=== PATIENT | female | born 1990 | race Caucasian/White ===

== ENCOUNTER 2017-06-11 19:35 | Outpatient (CLI) | payer OTHER ==
[~2017-06-11] VITALS: Ht 175.3 cm; Wt 91.8 kg
[~2017-06-11 19:35] MED LIST: NORCO 325 MG-51 TAB PO; PRENATAL MVI; ZOFRAN ODT4 MG PO
[2017-06-11 20:27] VITALS: BP 119/76; PULSE 90; TEMP 97.7
[2017-06-11] MEDS ORDERED: PRILOSEC 20MG20 MG PO (20:33)
[2017-06-11] MEDS ORDERED: LEXAPRO20 MG PO (20:33)
[2017-06-11] MEDS ORDERED: CALCIUM CARBON650 M2 PO (20:34)
[2017-06-11] MEDS ORDERED: PRENATAL1 TA7 PO (20:34)
== END 2017-06-11 21:05 | disposition home or self-care (01) ==
LOC: LDRO 19:35
DX: O62.9 Abnormality of forces of labor, unspecified (principal); Z3A.40 40 weeks gestation of pregnancy

== ENCOUNTER 2017-06-11 23:43 | Inpatient (IN) | payer OTHER ==
[~2017-06-11] VITALS: Ht 175.3 cm; Wt 91.8 kg
[~2017-06-11 23:43] MED LIST changes: +CALCIUM CARBON650 M2 PO; +LEXAPRO20 MG PO; +PRENATAL1 TA7 PO; +PRILOSEC 20MG20 MG PO
[2017-06-12] VITALS (29 sets, daily range): BP systolic 94–140; BP diastolic 50–95; PULSE 62–99; TEMP 97.9–98.8
[2017-06-12 00:47] LABS: BASO # 0.1 (0.0-0.2); BASO % 0.3 % (0.0-2.0); EOS # 0.2 (0.0-0.7); EOS % 1.2 % (0-4.0); GRAN # 11.7 (1.4-6.5); GRAN % 75.3 % (42.2-75.2); LYMPH # 2.2 (1.2-3.4); LYMPH % 14.4 % (20.0-51.0); MEAN CELL VOLUME 80 fl (80.0-100.0); MEAN CORPUSCULAR HGB CONC 34 g/dl (33.0-37.0); MEAN PLATELET VOLUME 11.4 fl (7.4-10.4); MONO # 1.2 (0.1-0.6); PLATELET COUNT 144 K/mm3 (130-400); RED BLOOD COUNT 4.27 M/mm3 (4.10-5.30); REDCELL DISTRIBUTION WIDTH-CV 13.2 % (11.5-14.5); WHITE BLOOD COUNT 15.6 K/mm3 (4.8-10.8)
[2017-06-12 00:50] LABS: HEMOGLOBIN 11.5 g/dl (12.5-16.0); MEAN CORPUSCULAR HEMOGLOBIN 27 pg (27.0-31.0)
[2017-06-13] MEDS ORDERED: PERCOCET 325 MG1 TA2 PO (03:22)
[2017-06-13] MEDS ORDERED: MOTRIN 800800 MG/TAB PO (03:22)
[2017-06-13 08:00] VITALS: BP 111/62; PULSE 77; TEMP 97.8
== END 2017-06-13 15:30 | disposition home or self-care (01) | DRG 775 ==
LOC: LDRO 23:43 → LDR 06-12 → OB 06-12
PROVIDERS: Obstetrics & Gynecology
PROC: 10E0XZZ Delivery of Products of Conception, External Approach (ICD-10-PCS; principal; 2017-06-12)
PROC: 0KQM0ZZ Repair Perineum Muscle, Open Approach (ICD-10-PCS; 2017-06-12)
DX: O48.0 Post-term pregnancy (principal); O70.1 Second degree perineal laceration during delivery; O77.0 Labor and delivery complicated by meconium in amniotic fluid; Z3A.40 40 weeks gestation of pregnancy; Z37.0 Single live birth
CPT/HCPCS: J2405; J2590; J7120

== ENCOUNTER 2018-10-15 03:43 | Inpatient (IN) | payer OTHER ==
[~2018-10-15] VITALS: Ht 177.8 cm; Wt 87.3 kg
[2018-10-15] VITALS (16 sets, daily range): BP systolic 96–121; BP diastolic 51–82; PULSE 66–91; TEMP 97.9–98.8
[~2018-10-15 03:43] MED LIST changes: +MOTRIN 800800 MG/TAB PO; +PERCOCET 325 MG1 TA2 PO
[2018-10-15] MEDS ORDERED: UNISOM25 MG PO (04:08)
[2018-10-15] MEDS ORDERED: VITAMIN B-625 MG PO (04:09)
[2018-10-15 05:51] LABS: BASO # 0.1 (0.0-0.2); BASO % 0.4 % (0.0-2.0); EOS # 0.2 (0.0-0.7); EOS % 0.9 % (0-4.0); GRAN # 12.8 (1.4-6.5); GRAN % 77.1 % (42.2-75.2); HEMATOCRIT 35.4 % (37.0-47.0); LYMPH # 2.3 (1.2-3.4); LYMPH % 13.5 % (20.0-51.0); MEAN CELL VOLUME 83 fl (80.0-100.0); MEAN CORPUSCULAR HEMOGLOBIN 28 pg (27.0-31.0); MEAN CORPUSCULAR HGB CONC 34 g/dl (33.0-37.0); MEAN PLATELET VOLUME 11.2 fl (7.4-10.4); MONO # 1.2 (0.1-0.6); MONO % 7.3 % (1.7-9.3); PLATELET COUNT 155 K/mm3 (130-400); RED BLOOD COUNT 4.28 M/mm3 (4.10-5.30); REDCELL DISTRIBUTION WIDTH-CV 13.3 % (11.5-14.5)
[2018-10-16] VITALS: BP 117/52; PULSE 74; TEMP 98.5
[2018-10-16 07:11] VITALS: BP 119/64; PULSE 73; TEMP 98.4
[2018-10-16] MEDS ORDERED: PERCOCET 325 MG1 TA2 PO (10:13)
[2018-10-16] MEDS ORDERED: IBU800 M1 PO (10:13)
== END 2018-10-16 12:30 | disposition home or self-care (01) | DRG 807 ==
LOC: LDRO 03:43 → LDR 05:09 → OB 10:45
PROVIDERS: Student in an Organized Health Care Education/Training Program
PROC: 10E0XZZ Delivery of Products of Conception, External Approach (ICD-10-PCS; principal; 2018-10-15)
PROC: 0HQ9XZZ Repair Perineum Skin, External Approach (ICD-10-PCS; 2018-10-15)
DX: O70.0 First degree perineal laceration during delivery (principal); Z37.0 Single live birth; Z3A.38 38 weeks gestation of pregnancy; O99.344 Other mental disorders complicating childbirth; F41.8 Other specified anxiety disorders
CPT/HCPCS: J2405; J2590; J2795; J7120